=== PATIENT | female | born 1950 | race Caucasian/White ===

== ENCOUNTER 2016-12-09 17:11 | Outpatient (CLI) | payer OTHER | END 2016-12-09 23:00 | LOC: LAB SRH 17:11 | DX: Z51.81 Encounter for therapeutic drug level monitoring (principal); Z79.01 Long term (current) use of anticoagulants; I48.91 Unspecified atrial fibrillation | CPT/HCPCS: 90074; 94060 ==

== ENCOUNTER 2017-01-03 10:45 | Outpatient (CLI) | payer OTHER | END 2017-01-03 23:00 | LOC: LAB SRH 10:45 | DX: Z51.81 Encounter for therapeutic drug level monitoring (principal); Z79.01 Long term (current) use of anticoagulants; I48.91 Unspecified atrial fibrillation | CPT/HCPCS: 90074; 94060 ==

== ENCOUNTER 2017-02-01 15:11 | Outpatient (CLI) | payer OTHER | END 2017-02-01 23:00 | LOC: LAB SRH 15:11 | DX: Z51.81 Encounter for therapeutic drug level monitoring (principal); I48.91 Unspecified atrial fibrillation; Z79.01 Long term (current) use of anticoagulants | CPT/HCPCS: 90074; 94060 ==

== ENCOUNTER 2017-04-21 08:36 | Outpatient (CLI) | payer OTHER | END 2017-04-21 23:00 | LOC: LAB SRH 08:36 | DX: E11.9 Type 2 diabetes mellitus without complications (principal); I10 Essential (primary) hypertension; J40 Bronchitis, not specified as acute or chronic; I48.91 Unspecified atrial fibrillation | CPT/HCPCS: 90074; 90100; 91286; 94060; 95059 ==